=== PATIENT | female | born 1950 | race Caucasian/White ===

== ENCOUNTER 2024-07-07 22:03 | Observation (INO) ==
[2024-07-07] MEDS: SODIUM CHLORIDE 0.9% 1,000 ML IV ONE (22:41)
[2024-07-07] MEDS: ONDANSETRON INJ 2 MG/ML 2 ML VIAL IV STA (22:41)
[2024-07-07] MEDS: ACETAMINOPHEN 1,000 MG/100 ML VIAL IV STA (22:44)
[2024-07-07 23:23] LABS: Alanine Aminotransferase 33 U/L (7-52); Albumin Globulin Ratio 0.7 (0.9-2); Albumin Level 3.3 gm/dl (3.4-5.0); Alkaline Phosphatase 206 U/L (34-104); Anion Gap 9 (3-11); Aspartate Aminotransferase 46 U/L (13-39); BUN Creatinine Ratio 19.6 (10-20); Bilirubin,Total 0.8 mg/dl (0.2-1.0); Blood Urea Nitrogen 11 mg/dl (6-23); Calcium 9.1 mg/dl (8.6-10.3); Carbon Dioxide 20 mmol/L (21-32); Chloride 102 mmol/L (98-107); Globulin 4.5 gm/dl (2.5-4.0); Glucose 85 mg/dl (70-99(Fasting)); Magnesium 1.6 mg/dl (1.7-2.4); Potassium 3.3 mmol/L (3.5-5.1); Sodium 131 mmol/L (136-145); Total Protein 7.8 gm/dl (6.0-8.3)
[2024-07-07 23:24] LABS: Hematocrit (blood only) 30.4 % (37.0-47.0); Hemoglobin 9.9 g/dl (12.0-16.0); Mean Corpuscular Hemoglobin 28.7 pg (25.0-34.0); Mean Corpuscular Hgb Conc 32.6 g/dL (32.0-36.0); Mean Corpuscular Volume 88.1 fL (80.0-100.0); Mean Platelet Volume 10.4 fL (9.4-12.4); Platelet Count 141 K/uL (130-400); RDW Coefficient of Variation 14.5 % (11.5-14.5); RDW Standard Deviation 46.4 fL (36.4-46.3); Red Blood Count 3.45 M/uL (4.20-5.40); White Blood Count 2.67 K/ul (4.8-10.8)
--- NOTE | 2024-07-07 23:24 | Emergency Department Note ---
History of Present Illness General Chief complaint: Back Injury/Pain Stated complaint: COUGH, VOMITING, FEVER, BACK PAIN, HEADACHE Time Seen by Provider: 07/07/24 22:16 History of Present Illness Maximum Pain Intensity: 8 This is a 74-year-old female presenting to the emergency department for evaluation of cough, back pain, and fever. Patient also had 3 episodes of vomiting today. Patient is from [place] and came to [place] 3 days ago. She has past history of breast cancer that is treated and she is cancer free. Patient has not take anything [id number] for her symptoms. She rates her pain an 8/10. Home Medications Medication Instructions Recorded Confirmed Type Lactobacillus acidophilus 20 500 mmu cells PO DAILY 07/08/24 07/08/24 History billion cell capsule (Florajen Acidophilus) anastrozole 1 mg tablet 1 mg PO DAILY 07/08/24 07/08/24 History cyanocobalamin (vitamin B-12) 1,000 mcg PO DAILY 07/08/24 07/08/24 History 1,000 mcg capsule ezetimibe 10 mg tablet 10 mg PO HS 07/08/24 07/08/24 History famotidine 20 mg tablet 20 mg PO DAILY 07/08/24 07/08/24 History fludrocortisone 0.1 mg tablet 0.1 mg PO DAILY 07/08/24 07/08/24 History gabapentin 300 mg capsule 300 mg PO HS 07/08/24 07/08/24 History loperamide 2 mg capsule 2 mg PO Q6H PRN Diarrhea 07/08/24 07/08/24 History midodrine 10 mg tablet 10 mg PO BID 07/08/24 07/08/24 History potassium chloride 20 mEq 20 meq PO BID 07/08/24 07/08/24 History tablet,extended release(part/cryst) pyridostigmine bromide 60 mg tablet 30 mg PO BID 07/08/24 07/08/24 History ursodiol 500 mg tablet 500 mg PO TID 07/08/24 07/08/24 History Allergies Allergy/AdvReac Type Severity Reaction Status Date / Time bempedoic acid Allergy Gastrointestinal Verified 07/07/24 22:32 [From Nexletol] Upset nitrofurantoin Allergy Rash Verified 07/07/24 22:32 prednisone Allergy Vomiting Verified 07/07/24 22:32 tramadol Allergy Vomiting Verified 07/07/24 22:32 Past Med/Surg History Problem List (Updated 07/08/24 @ 22:58 by Vaibhav Myers PA-C) Neutropenic (Acute) Influenza A (Acute) Medical History No chronic diseases present Surgical History No significant past surgical history Social History Smoking Status: Never smoker Second Hand Exposure: No; Do You Dip or Chew Tobacco: No; Hx Alcohol Use: No Hx Substance Use: No Preferred Language: Yoruba Communication Ability: Effective Meat Passer Required: No Beliefs That Will Affect Care: None Current Living Situation: Spouse Other Information That Helps Us Care for You: No Feels Safe at Home: Yes Safety Concerns: Feels Safe At This Time Assistive Devices: Walker Review of Systems A total of 10 systems reviewed and were otherwise negative Physical Exam Vital Signs Vital Signs - 24 hr 07/08/24 00:06 07/08/24 01:51 07/08/24 02:00 Pulse Rate [Apical] 54 L 58 L Pulse Rhythm [Apical] Regular Regular Pulse Strength [Apical] Normal Normal Respiratory Rate 17 16 Respiratory Effort / Characteristics Non-Labored Non-Labored Respiratory Depth Normal Normal Respiratory Pattern Regular Regular Blood Pressure [Right Arm] 142/78 H 148/88 H Blood Pressure Mean [Right Arm] 99 108 Blood Pressure Position [Right Arm] Lying Lying Pulse Oximetry 94 77 L 92 Oxygen Delivery Method Room Air Room Air Nasal Cannula Nasal Cannula Oxygen Flow Rate 2 Oxygen Flow Rate - Titration 2 Pulse Oximetry Post Tiitration 98 VITALS: Vitals are noted on the nurse's note and reviewed by myself. Vital signs stable. GENERAL: Well-developed, well-nourished, white female, who is uncomfortable appearing but nontoxic. HEAD: Normocephalic atraumatic. EARS: External ear normal. External auditory canals clear, tympanic membranes pearly duncan without erythema or effusion bilaterally. EYES: Pupils equal round and reactive to light and accommodation. Conjunctivae without injection, sclerae without icterus. Extraocular movements intact. NOSE: Patent, turbinates without inflammation or discharge. MOUTH: Mucous membranes moist. Tonsils are not enlarged. Pharynx without erythema, blood, or exudate. Uvula midline. Airway patent. NECK: Supple without nuchal rigidity. No lymphadenopathy. No thyromegaly. Cervical spine is nontender. HEART: Regular rate and rhythm without murmurs gallops or rubs. LUNGS: Clear to auscultation bilaterally without wheezes, rales or rhonchi. No retractions or accessory muscle use. ABDOMEN: Positive normal bowel sounds x 4. Soft, nontender, without masses or organomegaly. No guarding or rebound tenderness. Course Administered Medications Anastrozole (Anastrozole 1 Mg Tab) 1 mg PO DAILY [facility] Stop: 08/07/24 08:59 Last Admin: 07/08/24 08:36 Dose: 1 mg Documented By: ROMEO Co-signed By: DULCE MARIA Cyanocobalamin (Cyanocobalamin (B-12) 500 Mcg Tablet) 1,000 mcg PO DAILY [facility] Stop: 08/07/24 08:59 Last Admin: 07/08/24 08:39 Dose: 1,000 mcg Documented By: ROMEO Ezetimibe (Ezetimibe 10 Mg Tab) 10 mg PO [facility] Stop: 08/07/24 20:59 Last Admin: 07/08/24 20:55 Dose: 10 mg Documented By: TOBY Enoxaparin Sodium (Enoxaparin Inj 40 Mg/0.4 Ml Syr) 40 mg SQ Q24H [facility] Stop: 08/07/24 08:59 Last Admin: 07/08/24 08:38 Dose: 40 mg Documented By: ROMEO Famotidine (Famotidine 20 Mg Tab) 20 mg PO DAILY [facility] Stop: 08/07/24 08:59 Last Admin: 07/08/24 08:40 Dose: Not Given Documented By: ROMEO Fludrocortisone Acetate (Fludrocortisone Acetate 0.1 Mg Tab) 0.1 mg PO DAILY [facility] Stop: 08/07/24 08:59 Last Admin: 07/08/24 08:39 Dose: 0.1 mg Documented By: ROMEO Gabapentin (Gabapentin 300 Mg Cap) 300 mg PO [facility] Stop: 08/07/24 20:59 Last Admin: 07/08/24 20:56 Dose: 300 mg Documented By: TOBY Lactobacillus Acidophilus (Advanced Probiotic 625 Mg Capsule) 1,250 mg PO DAILY [facility] Stop: 08/07/24 08:59 Last Admin: 07/08/24 08:38 Dose: 1,250 mg Documented By: ROMEO Midodrine (Midodrine Hcl 10 Mg Tab) 10 mg PO BID@0800,1700 [facility] Stop: 08/07/24 07:59 Last Admin: 07/08/24 16:58 Dose: 10 mg Documented By: Admin: 07/08/24 08:39 Dose: 10 mg Documented By: ROMEO Ursodiol 500 Mg Tab: Non-Formulary Patient's Own Med 1 each PO PM [facility]; Protocol Stop: 08/07/24 20:59 Last Admin: 07/08/24 20:59 Dose: 500 mg Documented By: TOBY Oseltamivir Phosphate (Oseltamivir Phosphate 75 Mg Cap) 75 mg PO BID [facility]; Protocol Stop: 07/13/24 11:59 Last Admin: 07/08/24 20:56 Dose: 75 mg Documented By: radio rigger: 07/08/24 12:35 Dose: 75 mg Documented By: ROMEO Potassium Chloride (Potassium Chloride Crtab 20 Meq Tabcr) 20 meq PO BID [facility] Stop: 08/07/24 08:59 Last Admin: 07/08/24 20:55 Dose: 20 meq Documented By: radio rigger: 07/08/24 10:37 Dose: 20 meq Documented By: ROMEO Pyridostigmine [place] (Pyridostigmine [place] 60 Mg Tab) 30 mg PO BID [facility] Stop: 08/07/24 08:59 Last Admin: 07/08/24 20:58 Dose: 30 mg Documented By: radio rigger: 07/08/24 08:36 Dose: 30 mg Documented By: ROMEO Discontinued Medications Acetaminophen (Ofirmev) 1,000 mg in 100 mls @ 400 mls/hr IV NOW STA Stop: 07/07/24 22:34 Last Admin: 07/07/24 22:44 Dose: Not Given Documented By: HUNTER Sodium Chloride (Nss) 1,000 mls @ 999 mls/hr IV .Q1H1M ONE Stop: 07/07/24 23:20 Last Infusion: 07/07/24 23:49 Dose: Infused Documented By: Admin: 07/07/24 22:41 Dose: 999 mls/hr Documented By: JABARI Magnesium Sulfate/Dextrose (Magnesium Sulfate / D5w) 1 gm in 100 mls @ 50 mls/hr IV Q2H [facility] Stop: 07/08/24 06:59 Last Infusion: 07/08/24 07:10 Dose: Infused Documented By: Admin: 07/08/24 05:10 Dose: 50 mls/hr Documented By: Infusion: 07/08/24 05:10 Dose: Infused Documented By: Admin: 07/08/24 03:34 Dose: 50 mls/hr Documented By: ESTHER Sodium Chloride (Nss) 1,000 mls @ 80 mls/hr IV .[id number] [facility] Stop: 07/08/24 15:56 Last Infusion: 07/08/24 17:15 Dose: Infused Documented By: Admin: 07/08/24 04:33 Dose: 80 mls/hr Documented By: ESTHER Ioversol (Optiray 320 125ml) 116 ml IV ONCE ONE Stop: 07/08/24 00:00 Last Admin: 07/07/24 23:59 Dose: 116 ml Documented By: KAUSHAL Ketorolac Tromethamine (Ketorolac 30 Mg/Ml Vial) 30 mg IV NOW STA Stop: 07/07/24 23:26 Last Admin: 07/07/24 23:39 Dose: 30 mg Documented By: ESTHER Miscellaneous (Ursodiol 500 Mg Tablet - Order Awaiting Action) 1 each N/A QS [facility]; Protocol Stop: 08/07/24 07:59 Last Admin: 07/08/24 10:00 Dose: Not Given Documented By: ROMEO Codyaneous (Patient's Height &/Or Weight Needed) 1 each N/A NOW STA Stop: 07/08/24 03:46 Last Admin: 07/08/24 05:18 Dose: 1 each Documented By: JOSELO Ondansetron HCl (Ondansetron Inj 2 Mg/Ml 2 Ml Vial) 4 mg IV NOW STA Stop: 07/07/24 22:21 Last Admin: 07/07/24 22:41 Dose: 4 mg Documented By: JABARI Oseltamivir Phosphate (Oseltamivir Phosphate 75 Mg Cap) 75 mg PO NOW STA; Protocol Stop: 07/08/24 02:44 Last Admin: 07/08/24 03:34 Dose: 75 mg Documented By: ESTHER Potassium Chloride (Potassium Chloride Crtab 20 Meq Tabcr) 40 meq PO NOW STA Stop: 07/08/24 03:00 Last Admin: 07/08/24 03:33 Dose: 40 meq Documented By: ESTHER Medical Decision Making Differential Diagnosis Differential diagnosis: Etiologies such as viral syndrome, otitis, pharyngitis, pneumonia, influenza, meningitis, urinary tract infection, septic arthritis, soft tissue infectious process, intra-abdominal process, sepsis, bacteremia, as well as others were entertained. Laboratory Data 07/08/24 06:40 07/08/24 06:40 Lab Results 07/07/24 07/07/24 07/07/24 Range/Units 22:39 23:50 Unknown WBC 2.67 L (4.8-10.8) K/ul RBC 3.45 L (4.20-5.40) M/uL Hgb 9.9 L (12.0-16.0) g/dl Hct 30.4 L (37.0-47.0) % MCV 88.1 (80.0-100.0) fL MCH 28.7 (25.0-34.0) pg MCHC 32.6 (32.0-36.0) g/dL RDW Std Deviation 46.4 H (36.4-46.3) fL RDW Coeff of Choco 14.5 (11.5-14.5) % Plt Count 141 (130-400) K/uL MPV 10.4 (9.4-12.4) fL Neutrophils % (Manual) 34 % Lymphocytes % (Manual) 26 % Monocytes % (Manual) 4 % Eosinophils % (Manual) 1 % Basophils % (Manual) 1 % Myelocytes % (Man) 1 % Neutrophils # (Manual) 0.91 L (1.40-6.50) K/uL Total Absolute Neuts 0.91 L* (1.4-6.5) K/uL Lymphocytes # (Manual) 0.69 L (1.2-3.4) K/uL Total Abs Lymphocytes 1.58 (1.2-3.4) K/uL Monocytes # (Manual) 0.11 (0.11-0.59) K/uL Eosinophils # (Manual) 0.03 (0-0.50) K/uL Basophils # (Manual) 0.03 (0-0.2) K/uL Myelocytes # (Manual) 0.03 H (0-0) K/uL Large Granular Lymphs 33 % # Lrg Granular Lymphs 0.88 K/uL Sodium 131 L (136-145) mmol/L Potassium 3.3 L (3.5-5.1) mmol/L Chloride 102 (98-107) mmol/L Carbon Dioxide 20 L (21-32) mmol/L Anion Gap 9 (3-11) BUN 11 (6-23) mg/dl Creatinine 0.56 L (0.6-1.2) mg/dl Est Cr Clr Drug Dosing Not Reportable eGFR 96.91 BUN/Creatinine Ratio 19.6 (10-20) Glucose 85 (70-99(Fasting)) mg/dl Lactate 1.2 (0.4-2.0) mmol/L Calcium 9.1 (8.6-10.3) mg/dl Magnesium 1.6 L (1.7-2.4) mg/dl Total Bilirubin 0.8 (0.2-1.0) mg/dl AST 46 H (13-39) U/L ALT 33 (7-52) U/L Alkaline Phosphatase 206 H (34-104) U/L Troponin I High Sens 7.8 (0-14) pg/ml Total Protein 7.8 (6.0-8.3) gm/dl Albumin 3.3 L (3.4-5.0) gm/dl Globulin 4.5 H (2.5-4.0) gm/dl Albumin/Globulin Ratio 0.7 L (0.9-2) Urine Color Yellow Urine Appearance Clear (Clear) Urine pH 7.0 (4.5-7.5) Ur Specific [place] 1.004 (1.000-1.030) Urine Protein Negative (Negative) Urine Glucose (UA) Negative (Negative) Urine Ketones Negative (Negative) Urine Blood Negative (Negative) Urine Nitrite Negative (Negative) Urine Bilirubin Negative (Negative) Urine Urobilinogen Negative (Negative) Ur Leukocyte Esterase Negative (Negative) Nasal Influ A H1 2008 PCR DETECTED A (NotDetected) Adenovirus (PCR) Not Detected (NotDetected) B. pertussis DNA (PCR) Not Detected (NotDetected) B.parapertussis DNA PCR Not Detected (NotDetected) C. pneumoniae DNA (PCR) Not Detected (NotDetected) Coronavirus OC43 (PCR) Not Detected (NotDetected) Coronavirus HKU1 (PCR) Not Detected (NotDetected) Coronavirus 229E (PCR) Not Detected (NotDetected) SARS-CoV-2 (PCR) Not Detected (NotDetected) Coronavirus NL63 (PCR) Not Detected (NotDetected) Human Metapneumovir PCR Not Detected (NotDetected) Influenza Type B (PCR) Not Detected (NotDetected) M. pneumoniae (PCR) Not Detected (NotDetected) Parainfluenza 1 (PCR) Not Detected (NotDetected) Parainfluenza 2 (PCR) Not Detected (NotDetected) Parainfluenza 3 (PCR) Not Detected (NotDetected) Parainfluenza 4 (PCR) Not Detected (NotDetected) RSV (PCR) Not Detected (NotDetected) Entero/Rhino (PCR) Not Detected (NotDetected) Imaging Data Radiologist's Impression: Chest CTA 07/07/24 22:20 EXAM: CT angio chest PE protocol CLINICAL HISTORY: SOB, flu sx, hx breast ca 116 cc opti 320 TECHNIQUE: Contiguous axial CT angiographic images of the chest were acquired with the administration of 116 cc opti 320 intravenous contrast with PE protocol. One of these 3D techniques was utilized: Maximum Intensity Pixel (MIP), 3D Reconstructed Images, Volume Rendered Images, Surface Shaded Rendering. One of the following dose reduction techniques were utilized for this exam: Automated exposure control, adjustment of the mA and/or kV according to patient size, use of iterative reconstruction?. COMPARISON: None. FINDINGS: No evidence of any filling defect in the main pulmonary trunk, bilateral main pulmonary arteries, segmental arteries and subsegmental arteries to suggest acute or chronic pulmonary embolism. Dilated pulmonary artery and its branches. Dilated thoracic aorta. Cardiomegaly of left atrioventricular preponderance. Bilateral upper lung lobes apical reticulations with right middle lobe calcified nodule, possibly granulomatous. Bilateral pulmonary atelectatic plates and mosaic parenchymal attenuation. No obvious pulmonary masses or consolidations. No pleural or pericardial sac collections. No pathologically enlarged hilar or mediastinal lymph nodes are noted. Hiatus hernia. Scanned osseous structures show spondylosis. No osseous destruction. Scanned upper abdominal cuts show left hepatic lobe cyst. IMPRESSION: 1. No evidence of pulmonary arterial thromboembolism. 2. Cardiomegaly with dilated pulmonary artery suggestive of pulmonary hypertension. 3. Bilateral pulmonary atelectatic plates and mosaic parenchymal attenuation. 4. No obvious pulmonary masses or consolidations. Electronically signed by Alexandrea Goodwin 07-08-2024 01:39 AM MDM Narrative Physical exam and history were performed. Nursing notes, EMR, and Medication List were personally reviewed. No social concerns were identified as barriers to patients care. Patient appears to have fever and flulike symptoms bringing her to the ER. IV access was established and labs were obtained. Bio fire was performed. With her history of cancer and recent travel she was sent to CT scan for angiography. An order was placed for continuous cardiac monitoring. The monitor shows a rate of 62 with normal sinus rhythm. Patient's blood work is as above and was reviewed. She does not have a significantly elevated white blood cell count. She is mildly anemic. Patient has neutropenia on blood work with total absolute neutrophils of 0.91. Transaminases are not diagnostic. Troponin is negative. Bio fire is positive for influenza A. CT scan was reviewed by myself and radiology showing no significant acute process. Case was discussed with my attending. Overall the patient is needs escalation of care. She is neutropenic with influenza. She has cancer history and likely needs additional care before it is safe to discharge her. Case was discussed with the on-call hospitalist team. Please see their dictation for further patient course, plan, disposition. The chart was completed utilizing [employer] Speech Voice Recognition Software. Grammatical errors, random word insertions, pronoun errors, and incomplete sentences are an occasional consequence of this system due to software limitations, ambient noise, and hardware issues. Any formal questions or concerns about the content, text, or information contained within the body of this dictation should be directly addressed to the provider for clarification. Impression & Plan Influenza A, Neutropenic Discharge Plan Visit Data Chief Complaint: Back Injury/Pain Stated Complaint: COUGH, VOMITING, FEVER, BACK PAIN, HEADACHE ED Provider: Nemesio Mora ED Midlevel Provider: Vaibhav Myers Discharge Problem: Influenza A, Neutropenic Patient Disposition: Admitted As Inpatient Discharge Instructions Interventions: ED Discharge Assessment Last Done: 07/08/24 07:41
[2024-07-07 23:30] LABS: Troponin I High Sensitivity 7.8 pg/ml (0-14)
[2024-07-07] MEDS: KETOROLAC 30 MG/ML VIAL IV STA (23:39)
[2024-07-07 23:50] LABS: Adenovirus PCR Not Detected (NotDetected); Bordetella parapertussis PCR Not Detected (NotDetected); Bordetella pertussis PCR Not Detected (NotDetected); Chlamydia pneumoniae PCR Not Detected (NotDetected); Coronavirus 229E PCR Not Detected (NotDetected); Coronavirus CoV-2 (COVID19)PCR Not Detected (NotDetected); Coronavirus HKU1 PCR Not Detected (NotDetected); Coronavirus NL63 PCR Not Detected (NotDetected); Coronavirus OC43PCR Not Detected (NotDetected); Human Metapneumovirus PCR Not Detected (NotDetected); Influenza A (H1 2009) PCR DETECTED (NotDetected); Influenza B PCR Not Detected (NotDetected); Mycoplasma pneumoniae PCR Not Detected (NotDetected); Parainfluenza Virus 1 PCR Not Detected (NotDetected); Parainfluenza Virus 2 PCR Not Detected (NotDetected); Parainfluenza Virus 3 PCR Not Detected (NotDetected); Parainfluenza Virus 4 PCR Not Detected (NotDetected); Respiratory Syncytial VirusPCR Not Detected (NotDetected); Rhinovirus/Enterovirus PCR Not Detected (NotDetected)
[2024-07-07 23:55] LABS: ALC (manual) 1.58 K/uL (1.2-3.4); ANC (manual) 0.91 K/uL (1.4-6.5); Basophils # (manual) 0.03 K/uL (0-0.2); Basophils % (manual) 1 %; Eosinophils # (manual) 0.03 K/uL (0-0.50); Eosinophils % (manual) 1 %; Large Granular Lymph # (manua 0.88 K/uL; Large Granular Lymph % (manual) 33 %; Lymphocytes # (manual) 0.69 K/uL (1.2-3.4); Lymphocytes % (manual) 26 %; Monocytes # (manual) 0.11 K/uL (0.11-0.59); Monocytes % (manual) 4 %; Myelocytes # (manual) 0.03 K/uL (0-0); Myelocytes % (manual) 1 %; Neutrophils # (manual) 0.91 K/uL (1.40-6.50); Neutrophils % (manual) 34 %
[2024-07-07] MEDS: OPTIRAY 320 125ml IV ONE (23:59)
[2024-07-08 00:01] LABS: Appearance Urine Clear (Clear); Bilirubin Urine Negative (Negative); Blood Urine Negative (Negative); Color Urine Yellow; Glucose Urine UA Negative (Negative); Ketones Urine Negative (Negative); Leukocyte Esterase Urine Negative (Negative); Nitrite Urine Negative (Negative); Protein Urine Negative (Negative); Specific Gravity Urine 1.004 (1.000-1.030); Urobilinogen Urine Negative (Negative)
--- NOTE | 2024-07-08 01:40 | CT Scan Report ---
EXAM: CT angio chest PE protocol CLINICAL HISTORY: SOB, flu sx, hx breast ca 116 cc opti 320 TECHNIQUE: Contiguous axial CT angiographic images of the chest were acquired with the administration of 116 cc opti 320 intravenous contrast with PE protocol. One of these 3D techniques was utilized: Maximum Intensity Pixel (MIP), 3D Reconstructed Images, Volume Rendered Images, Surface Shaded Rendering. One of the following dose reduction techniques were utilized for this exam: Automated exposure control, adjustment of the mA and/or kV according to patient size, use of iterative reconstruction?. COMPARISON: None. FINDINGS: No evidence of any filling defect in the main pulmonary trunk, bilateral main pulmonary arteries, segmental arteries and subsegmental arteries to suggest acute or chronic pulmonary embolism. Dilated pulmonary artery and its branches. Dilated thoracic aorta. Cardiomegaly of left atrioventricular preponderance. Bilateral upper lung lobes apical reticulations with right middle lobe calcified nodule, possibly granulomatous. Bilateral pulmonary atelectatic plates and mosaic parenchymal attenuation. No obvious pulmonary masses or consolidations. No pleural or pericardial sac collections. No pathologically enlarged hilar or mediastinal lymph nodes are noted. Hiatus hernia. Scanned osseous structures show spondylosis. No osseous destruction. Scanned upper abdominal cuts show left hepatic lobe cyst. IMPRESSION: 1. No evidence of pulmonary arterial thromboembolism. 2. Cardiomegaly with dilated pulmonary artery suggestive of pulmonary hypertension. 3. Bilateral pulmonary atelectatic plates and mosaic parenchymal attenuation. 4. No obvious pulmonary masses or consolidations. Electronically signed by Alexandrea Goodwin 07-08-2024 01:39 AM
--- NOTE | 2024-07-08 02:49 | History & Physical Report ---
Date of Service July 08, 2024 Assessment & Plan (1) Influenza A: Plan: 74-year-old female from [place] visiting [place] to see her granddaughters's volleyball game with past med history significant for breast cancer diagnosed in 2020 status post left lumpectomy chemo and radiation currently in remission, pancreatic cancer diagnosed in 2022 status post Whipple's procedure and last Tuesday at [facility] had MRIs and CT scans and as per patient no cancer detected, history of primary biliary cholangitis, hypotension, hyperlipidemia, GERD presents with flulike symptoms and nasal swab came positive for influenza A. Patient states she developed symptoms on July 06 evening. She was having whole body aches. Headaches. Feeling weak. Nausea and vomiting. Cough and feeling short of breath. Vision is okay. Appetite is down. Denies any chest pain. Has some abdominal discomfort. Denies any diarrhea or constipation. Micturating okay. Ambulating okay. Requiring oxygen in the ER. Also has neutropenia on labs. Influenza A Hypoxia CTA chest okay Continue oxygen supplementation Start Tamiflu Nebs as needed Will monitor Neutropenia Droplet precautions Follow labs Anemia Possibly from her cancers We do not have baseline We will follow labs Iron studies Stool for Hemoccult History of breast cancer Status post left lumpectomy chemo and radiation On anastrozole Follows with [facility] Pancreatic cancer Status post Whipple's procedure Recently had MRI and CT scans at [facility] and were okay as per patient Hypotension On midodrine and fludrocortisone Hypokalemia and hypomagnesia Replace Will follow labs Hyponatremia Sodium 131 Gentle fluids Will follow repeat labs Hyperlipidemia On Zetia GERD On famotidine Primary biliary cholangitis On ursodiol DVT prophylaxis Lovenox Disposition Med/telemetry Full code. History of Present Illness Chief Complaint: Flu Primary Care Provider: JENNI HANNON 74-year-old female from [place] visiting [place] to see her granddaughters's volleyball game with past med history significant for breast cancer diagnosed in 2020 status post left lumpectomy chemo and radiation currently in remission, pancreatic cancer diagnosed in 2022 status post Whipple's procedure and last Tuesday at [facility] had MRIs and CT scans and as per patient no cancer detected, history of primary biliary cholangitis, hypotension, hyperlipidemia, GERD presents with flulike symptoms and nasal swab came positive for influenza A. Patient states she developed symptoms on July 06 evening. She was having whole body aches. Headaches. Feeling weak. Nausea and vomiting. Cough and feeling short of breath. Vision is okay. Appetite is down. Denies any chest pain. Has some abdominal discomfort. Denies any diarrhea or constipation. Micturating okay. Ambulating okay. Requiring oxygen in the ER. Also has neutropenia on labs. Past medical history. As mentioned above Past surgical history. Left breast lumpectomy. Whipple's procedure. Right knee surgery. Social history. No smoking. No alcohol. No drug use. Family history. Mother had breast cancer. Grandmother had breast cancer. Father had cancer. Two brothers and sister had cancer. Allergies Allergy/AdvReac Type Severity Reaction Status Date / Time bempedoic acid Allergy Gastrointestinal Verified 07/07/24 22:32 [From Nexletol] Upset nitrofurantoin Allergy Rash Verified 07/07/24 22:32 prednisone Allergy Vomiting Verified 07/07/24 22:32 tramadol Allergy Vomiting Verified 07/07/24 22:32 Home Medications Medication Instructions Recorded Confirmed Type Lactobacillus acidophilus 20 500 mmu cells PO DAILY 07/08/24 07/08/24 History billion cell capsule (Florajen Acidophilus) anastrozole 1 mg tablet 1 mg PO DAILY 07/08/24 07/08/24 History cyanocobalamin (vitamin B-12) 1,000 mcg PO DAILY 07/08/24 07/08/24 History 1,000 mcg capsule ezetimibe 10 mg tablet 10 mg PO HS 07/08/24 07/08/24 History famotidine 20 mg tablet 20 mg PO DAILY 07/08/24 07/08/24 History fludrocortisone 0.1 mg tablet 0.1 mg PO DAILY 07/08/24 07/08/24 History gabapentin 300 mg capsule 300 mg PO HS 07/08/24 07/08/24 History loperamide 2 mg capsule 2 mg PO Q6H PRN Diarrhea 07/08/24 07/08/24 History midodrine 10 mg tablet 10 mg PO BID 07/08/24 07/08/24 History potassium chloride 20 mEq 20 meq PO BID 07/08/24 07/08/24 History tablet,extended release(part/cryst) pyridostigmine bromide 60 mg tablet 30 mg PO BID 07/08/24 07/08/24 History ursodiol 500 mg tablet 500 mg PO TID 07/08/24 07/08/24 History Past Med/Surg History Problem List (Updated 07/08/24 @ 02:51 by Murphy Lara MD) Influenza A Medical History No chronic diseases present Surgical History No significant past surgical history Social History Smoking Status: Never smoker Second Hand Exposure: No; Do You Dip or Chew Tobacco: No; Hx Alcohol Use: No Hx Substance Use: No Preferred Language: [place]i Communication Ability: Effective Client Support Analyst Required: No Beliefs That Will Affect Care: None Current Living Situation: Spouse Other Information That Helps Us Care for You: No Feels Safe at Home: Yes Safety Concerns: Feels Safe At This Time Assistive Devices: Walker Review of Systems Review of Systems: All systems reviewed & are unremarkable except as noted in HPI & below Physical Exam Physical Exam: General- Not in distress Head- atraumatic Eyes- PERRL. ENT- oropharynx clear Neck- supple, no JVD. Lungs- clear to auscultation no wheezing or crackles Heart- regular rhythm; no murmur, no gallop. Abdomen- normal bowel sounds, soft, nontender, no distension Extremities- no pretibial edema, no erythema seen Neuro- alert, oriented PERRL, no facial palsy; no dysarthria; moves extremities Results & Data Results & Data Vital Signs (Past 12 Hours) Vital Signs Temp Pulse Pulse Resp BP Pulse Ox O2 Del Method 07/08/24 02:00 58 L 16 148/88 H 92 Nasal Cannula 07/08/24 01:51 77 L Room Air, Nasal Cannula 07/08/24 00:06 54 L 17 142/78 H 94 Room Air 07/07/24 22:55 69 18 151/83 H 97 Room Air 07/07/24 22:52 60 18 151/83 H 07/07/24 22:51 68 07/07/24 22:20 61 18 99 Room Air 07/07/24 22:08 37.1 C O2 Flow Rate 07/08/24 02:00 2 07/08/24 01:51 07/08/24 00:06 07/07/24 22:55 07/07/24 22:52 07/07/24 22:51 07/07/24 22:20 07/07/24 22:08 Diagnostic Findings Laboratory Results WBC 2.67 K/ul (4.8-10.8) L 07/07/24 22:39 RBC 3.45 M/uL (4.20-5.40) L 07/07/24 22:39 Hgb 9.9 g/dl (12.0-16.0) L 07/07/24 22:39 Hct 30.4 % (37.0-47.0) L 07/07/24 22:39 MCV 88.1 fL (80.0-100.0) 07/07/24 22:39 MCH 28.7 pg (25.0-34.0) 07/07/24 22:39 MCHC 32.6 g/dL (32.0-36.0) 07/07/24 22:39 RDW Std Deviation 46.4 fL (36.4-46.3) H 07/07/24 22:39 RDW Coeff of [place] 14.5 % (11.5-14.5) 07/07/24 22:39 Plt Count 141 K/uL (130-400) 07/07/24 22:39 MPV 10.4 fL (9.4-12.4) 07/07/24 22:39 Neutrophils % (Manual) 34 % 07/07/24 22:39 Lymphocytes % (Manual) 26 % 07/07/24 22:39 Monocytes % (Manual) 4 % 07/07/24 22:39 Eosinophils % (Manual) 1 % 07/07/24 22:39 Basophils % (Manual) 1 % 07/07/24 22:39 Myelocytes % (Man) 1 % 07/07/24 22:39 Neutrophils # (Manual) 0.91 K/uL (1.40-6.50) L 07/07/24 22:39 Total Absolute Neuts 0.91 K/uL (1.4-6.5) L* 07/07/24 22:39 Lymphocytes # (Manual) 0.69 K/uL (1.2-3.4) L 07/07/24 22:39 Total Abs Lymphocytes 1.58 K/uL (1.2-3.4) 07/07/24 22:39 Monocytes # (Manual) 0.11 K/uL (0.11-0.59) 07/07/24 22:39 Eosinophils # (Manual) 0.03 K/uL (0-0.50) 07/07/24 22:39 Basophils # (Manual) 0.03 K/uL (0-0.2) 07/07/24 22:39 Myelocytes # (Manual) 0.03 K/uL (0-0) H 07/07/24 22:39 Large Granular Lymphs 33 % 07/07/24 22:39 # Lrg Granular Lymphs 0.88 K/uL 07/07/24 22:39 Sodium 131 mmol/L (136-145) L 07/07/24 22:39 Potassium 3.3 mmol/L (3.5-5.1) L 07/07/24 22:39 Chloride 102 mmol/L (98-107) 07/07/24 22:39 Carbon Dioxide 20 mmol/L (21-32) L 07/07/24 22:39 Anion Gap 9 (3-11) 07/07/24 22:39 BUN 11 mg/dl (6-23) 07/07/24 22:39 Creatinine 0.56 mg/dl (0.6-1.2) L 07/07/24 22:39 Est Cr Clr Drug Dosing Not Reportable 07/07/24 22:39 eGFR 96.91 07/07/24 22:39 BUN/Creatinine Ratio 19.6 (10-20) 07/07/24 22:39 Glucose 85 mg/dl (70-99(Fasting)) 07/07/24 22:39 Lactate 1.2 mmol/L (0.4-2.0) 07/07/24 22:39 Calcium 9.1 mg/dl (8.6-10.3) 07/07/24 22:39 Magnesium 1.6 mg/dl (1.7-2.4) L 07/07/24 22:39 Total Bilirubin 0.8 mg/dl (0.2-1.0) 07/07/24 22:39 AST 46 U/L (13-39) H 07/07/24 22:39 ALT 33 U/L (7-52) 07/07/24 22:39 Alkaline Phosphatase 206 U/L (34-104) H 07/07/24 22:39 Troponin I High Sens 7.8 pg/ml (0-14) 07/07/24 22:39 Total Protein 7.8 gm/dl (6.0-8.3) 07/07/24 22:39 Albumin 3.3 gm/dl (3.4-5.0) L 07/07/24 22:39 Globulin 4.5 gm/dl (2.5-4.0) H 07/07/24 22:39 Albumin/Globulin Ratio 0.7 (0.9-2) L 07/07/24 22:39 Urine Color Yellow 07/07/24 23:50 Urine Appearance Clear (Clear) 07/07/24 23:50 Urine pH 7.0 (4.5-7.5) 07/07/24 23:50 Ur Specific [place] 1.004 (1.000-1.030) 07/07/24 23:50 Urine Protein Negative (Negative) 07/07/24 23:50 Urine Glucose (UA) Negative (Negative) 07/07/24 23:50 Urine Ketones Negative (Negative) 07/07/24 23:50 Urine Blood Negative (Negative) 07/07/24 23:50 Urine Nitrite Negative (Negative) 07/07/24 23:50 Urine Bilirubin Negative (Negative) 07/07/24 23:50 Urine Urobilinogen Negative (Negative) 07/07/24 23:50 Ur Leukocyte Esterase Negative (Negative) 07/07/24 23:50 Nasal Influ A H1 2008 PCR DETECTED (NotDetected) A 07/07/24 Unknown Adenovirus (PCR) Not Detected (NotDetected) 07/07/24 Unknown B. pertussis DNA (PCR) Not Detected (NotDetected) 07/07/24 Unknown B.parapertussis DNA PCR Not Detected (NotDetected) 07/07/24 Unknown C. pneumoniae DNA (PCR) Not Detected (NotDetected) 07/07/24 Unknown Coronavirus OC43 (PCR) Not Detected (NotDetected) 07/07/24 Unknown Coronavirus HKU1 (PCR) Not Detected (NotDetected) 07/07/24 Unknown Coronavirus 229E (PCR) Not Detected (NotDetected) 07/07/24 Unknown SARS-CoV-2 (PCR) Not Detected (NotDetected) 07/07/24 Unknown Coronavirus NL63 (PCR) Not Detected (NotDetected) 07/07/24 Unknown Human Metapneumovir PCR Not Detected (NotDetected) 07/07/24 Unknown Influenza Type B (PCR) Not Detected (NotDetected) 07/07/24 Unknown M. pneumoniae (PCR) Not Detected (NotDetected) 07/07/24 Unknown Parainfluenza 1 (PCR) Not Detected (NotDetected) 07/07/24 Unknown Parainfluenza 2 (PCR) Not Detected (NotDetected) 07/07/24 Unknown Parainfluenza 3 (PCR) Not Detected (NotDetected) 07/07/24 Unknown Parainfluenza 4 (PCR) Not Detected (NotDetected) 07/07/24 Unknown RSV (PCR) Not Detected (NotDetected) 07/07/24 Unknown Entero/Rhino (PCR) Not Detected (NotDetected) 07/07/24 Unknown Impressions Chest CTA 07/07/24 22:20 EXAM: CT angio chest PE protocol CLINICAL HISTORY: SOB, flu sx, hx breast ca 116 cc opti 320 TECHNIQUE: Contiguous axial CT angiographic images of the chest were acquired with the administration of 116 cc opti 320 intravenous contrast with PE protocol. One of these 3D techniques was utilized: Maximum Intensity Pixel (MIP), 3D Reconstructed Images, Volume Rendered Images, Surface Shaded Rendering. One of the following dose reduction techniques were utilized for this exam: Automated exposure control, adjustment of the mA and/or kV according to patient size, use of iterative reconstruction?. COMPARISON: None. FINDINGS: No evidence of any filling defect in the main pulmonary trunk, bilateral main pulmonary arteries, segmental arteries and subsegmental arteries to suggest acute or chronic pulmonary embolism. Dilated pulmonary artery and its branches. Dilated thoracic aorta. Cardiomegaly of left atrioventricular preponderance. Bilateral upper lung lobes apical reticulations with right middle lobe calcified nodule, possibly granulomatous. Bilateral pulmonary atelectatic plates and mosaic parenchymal attenuation. No obvious pulmonary masses or consolidations. No pleural or pericardial sac collections. No pathologically enlarged hilar or mediastinal lymph nodes are noted. Hiatus hernia. Scanned osseous structures show spondylosis. No osseous destruction. Scanned upper abdominal cuts show left hepatic lobe cyst. IMPRESSION: 1. No evidence of pulmonary arterial thromboembolism. 2. Cardiomegaly with dilated pulmonary artery suggestive of pulmonary hypertension. 3. Bilateral pulmonary atelectatic plates and mosaic parenchymal attenuation. 4. No obvious pulmonary masses or consolidations. Electronically signed by Alexandrea Goodwin 07-08-2024 01:39 AM ECG Additional Comments: ECG. Normal sinus rhythm with sinus arrhythmia rate of 69. QTc 495. Code Status & VTE Plan VTE Prophylaxis Plan VTE Prophylaxis will be ordered: Yes
[2024-07-08] MEDS ORDERED: ACETAMINOPHEN 325 MG TAB PO PRN (03:27)
[2024-07-08] MEDS ORDERED: ONDANSETRON INJ 2 MG/ML 2 ML VIAL IV PRN (03:27)
[2024-07-08] MEDS ORDERED: NITROGLYCERIN SL 0.4 MG/TAB TAB SL PRN (03:27)
[2024-07-08] MEDS: POTASSIUM CHLORIDE CRTAB 20 MEQ TABCR PO STA (03:33)
[2024-07-08] MEDS: MAGNESIUM SULFATE / D5W 1 GM/100 ML BAG IV SCH (03:34)
[2024-07-08] MEDS: OSELTAMIVIR PHOSPHATE 75 MG CAP PO STA (03:34)
[2024-07-08] MEDS: SODIUM CHLORIDE 0.9% 1,000 ML IV SCH (04:33)
[2024-07-08] MEDS: Patient's HEIGHT &/or WEIGHT Needed STA (05:18)
[2024-07-08 07:33] LABS: Basophils # (auto) 0.01 K/uL (0.00-0.20); Basophils % (auto) 0.3 %; Eosinophils # (auto) 0.01 K/uL (0.00-0.50); Eosinophils % (auto) 0.3 %; Hematocrit (blood only) 31.4 % (37.0-47.0); Hemoglobin 10.4 g/dl (12.0-16.0); Immature Granulocytes # (auto) 0.01 K/uL (0.01-0.20); Immature Granulocytes % (auto) 0.3 %; Lymphocytes # (auto) 1.47 K/uL (1.20-3.40); Mean Corpuscular Hemoglobin 29.3 pg (25.0-34.0); Mean Corpuscular Hgb Conc 33.1 g/dL (32.0-36.0); Mean Corpuscular Volume 88.5 fL (80.0-100.0); Mean Platelet Volume 10.9 fL (9.4-12.4); Monocytes # (auto) 0.68 K/uL (0.11-0.59); Monocytes % (auto) 20.8 %; Neutrophils # (auto) 1.09 K/uL (1.40-6.50); Neutrophils % (auto) 33.3 %; Platelet Count 132 K/uL (130-400); RDW Coefficient of Variation 14.5 % (11.5-14.5); Red Blood Count 3.55 M/uL (4.20-5.40); White Blood Count 3.27 K/ul (4.8-10.8)
[2024-07-08 07:42] LABS: BUN Creatinine Ratio 20.3 (10-20); Calcium 8.8 mg/dl (8.6-10.3); Creatinine Clr Calc Pharmacy 78.4 ml/min; Magnesium 2.5 mg/dl (1.7-2.4); Potassium 3.7 mmol/L (3.5-5.1)
--- NOTE | 2024-07-08 08:24 | Electrocardiogram Report ---
Test Reason : Blood Pressure : */* mmHG Vent. Rate : 69 BPM Atrial Rate : 69 BPM P-R Int : 122 ms QRS Dur : 84 ms QT Int : 462 ms P-R-T Axes : 58 -2 46 degrees QTcB Int : 495 ms Normal sinus rhythm Prolonged QT Abnormal ECG No previous ECGs available Confirmed by Louie Longo ([id number]) on 07/08/2024 8:23:34 AM Referred By: Confirmed By: Louie Longo
[2024-07-08] MEDS: ANASTROZOLE 1 MG TAB PO SCH (08:36)
[2024-07-08] MEDS: pyRIDostigmine bromide 60 MG TAB PO SCH (08:36)
[2024-07-08] MEDS: ENOXAPARIN INJ 40 MG/0.4 ML SYR SQ SCH (08:38)
[2024-07-08] MEDS: ADVANCED PROBIOTIC 625 MG CAPSULE PO SCH (08:38)
[2024-07-08] MEDS: FLUDROCORTISONE ACETATE 0.1 MG TAB PO SCH (08:39)
[2024-07-08] MEDS: MIDODRINE HCL 10 MG TAB PO SCH (08:39)
[2024-07-08] MEDS: CYANOCOBALAMIN (B-12) 500 MCG TABLET PO SCH (08:39)
[2024-07-08] MEDS: FAMOTIDINE 20 MG TAB PO SCH (08:40)
[2024-07-08 09:40] LABS: Folate (Folic Acid),Ser orPlas 20.48 ng/ml (>5.38)
[2024-07-08] MEDS: POTASSIUM CHLORIDE CRTAB 20 MEQ TABCR PO SCH (10:37)
--- NOTE | 2024-07-08 12:01 | Hospitalist Progress Note ---
Date of Service July 08, 2024 Assessment & Plan (1) Influenza A: Plan: 74-year-old female from [place] visiting [place] to see her granddaughters's volleyball game with past med history significant for breast cancer diagnosed in 2020 status post left lumpectomy chemo and radiation currently in remission, pancreatic cancer diagnosed in 2022 status post Whipple's procedure and last Tuesday at [facility] had MRIs and CT scans and as per patient no cancer detected, history of primary biliary cholangitis, hypotension, hyperlipidemia, GERD presents with flulike symptoms and nasal swab came positive for influenza A. Patient states she developed symptoms on July 06 evening. She was having whole body aches. Headaches. Feeling weak. Nausea and vomiting. Cough and feeling short of breath. Vision is okay. Appetite is down. Denies any chest pain. Has some abdominal discomfort. Denies any diarrhea or constipation. Micturating okay. Ambulating okay. Requiring oxygen in the ER. Also has neutropenia on labs. Influenza A Hypoxia CTA chest okay Has been on TamifluTamiflu Nebs as needed Clinically much better without any cough, shortness of breath Generalized weakness is improving Neutropenia Droplet precautions Mild neutropenia was likely secondary to influenza and this is much improved today Will monitor blood count tomorrow and likely discharge tomorrow afternoon Anemia Possibly from her cancers We do not have baseline We will follow labs Iron studies Stool for Hemoccult- not collected History of breast cancer Status post left lumpectomy chemo and radiation On anastrozole Follows with [facility] Pancreatic cancer Status post Whipple's procedure Recently had MRI and CT scans at [facility] and were okay as per patient Denies any abdominal pain, nausea and or vomiting Hypotension On midodrine and fludrocortisone Hypokalemia and hypomagnesia Replace Will follow labs Hyponatremia Sodium 131 Gentle fluids Will follow repeat labs- hyponatremia is corrected Hyperlipidemia On Zetia GERD On famotidine Primary biliary cholangitis On ursodiol DVT prophylaxis Lovenox Disposition Med/telemetry Full code. Admission and Anticipated Discharge Date Admission Date: July 08, 2024 Subjective 07/08/2024 The patient was seen and examined in medical telemetry unit She has been feeling little better but still remains weak Denies any shortness of breath or cough and does not have any abdominal pain, nausea and or vomiting and no diarrhea Review of Systems Review of Systems: All systems reviewed and are unremarkable except as noted below Physical Exam Physical Exam: Sitting at the edge of the bed without any acute distress Constitutional: + ill appearing and average body habitus Eyes: PERRL, conjunctivae normal, anicteric sclerae ENMT: external ear and nose normal, oropharynx normal Neck: trachea midline, no thyromegaly Respiratory: no respiratory distress Auscultation: + diminished lung sounds; no crackles and no wheezes Cardiovascular: Rate/Rhythm: regular rate and regular rhythm; not tachycardic Heart Sounds: normal S1 and normal S2; no murmur Extremities: no edema Gastrointestinal (Abdomen): Inspection/Auscultation: normal bowel sounds; abdomen not distended Percussion/Palpation: abdomen soft; abdomen nontender Musculoskeletal: No acute arthritis involving any of the joint Neurologic: normal touch/pain/proprioception and moves all extremities; no focal motor deficits Lymphatic: no cervical or axillary lymphadenopathy Results & Data Results & Data Vital Signs (Past 12 Hours) Vital Signs Temp Pulse Pulse Resp BP BP Pulse Ox 07/08/24 09:24 69 07/08/24 09:24 07/08/24 08:00 36.9 C 71 16 150/91 H 98 07/08/24 07:41 07/08/24 07:29 60 07/08/24 07:00 137/87 07/08/24 06:48 56 L 14 96 07/08/24 04:31 36.8 C 62 17 140/88 07/08/24 04:00 53 L 17 146/89 H 98 07/08/24 03:28 57 L 17 152/92 H 98 07/08/24 03:27 07/08/24 02:44 56 L 07/08/24 02:00 58 L 16 148/88 H 92 07/08/24 01:51 77 L 07/08/24 00:06 54 L 17 142/78 H 94 Pulse Ox O2 Del Method O2 Del Method O2 Flow Rate 07/08/24 09:24 07/08/24 09:24 Room Air 07/08/24 08:00 Room Air 07/08/24 07:41 Room Air 07/08/24 07:29 07/08/24 07:00 07/08/24 06:48 Room Air 07/08/24 04:31 07/08/24 04:00 Room Air 07/08/24 03:28 Nasal Cannula 2 07/08/24 03:27 92 Room Air 07/08/24 02:44 07/08/24 02:00 Nasal Cannula 2 07/08/24 01:51 Room Air, Nasal Cannula 07/08/24 00:06 Room Air Laboratory Results Short CBC 07/07/24 07/08/24 Range/Units 22:39 06:40 WBC 2.67 L 3.27 L (4.8-10.8) K/ul Hgb 9.9 L 10.4 L (12.0-16.0) g/dl Hct 30.4 L 31.4 L (37.0-47.0) % Plt Count 141 132 (130-400) K/uL BMP 07/07/24 07/08/24 22:39 06:40 Sodium 131 L 136 Potassium 3.3 L 3.7 Chloride 102 107 Carbon Dioxide 20 L 23 BUN 11 12 Creatinine 0.56 L 0.59 L Glucose 85 89 Calcium 9.1 8.8 Liver Function 07/07/24 Range/Units 22:39 Total Bilirubin 0.8 (0.2-1.0) mg/dl AST 46 H (13-39) U/L ALT 33 (7-52) U/L Alkaline Phosphatase 206 H (34-104) U/L Albumin 3.3 L (3.4-5.0) gm/dl Urine 07/07/24 Range/Units 23:50 Urine Color Yellow Urine Appearance Clear (Clear) Urine pH 7.0 (4.5-7.5) Ur Specific [place] 1.004 (1.000-1.030) Urine Protein Negative (Negative) Urine Glucose (UA) Negative (Negative) Medications Administered Current Inpatient Medications Acetaminophen (Acetaminophen 325 Mg Tab) 650 mg PO Q4H PRN PRN Reason: Pain or Fever Stop: 08/07/24 03:26 Anastrozole (Anastrozole 1 Mg Tab) 1 mg PO DAILY [facility] Stop: 08/07/24 08:59 Last Admin: 07/08/24 08:36 Dose: 1 mg Cyanocobalamin (Cyanocobalamin (B-12) 500 Mcg Tablet) 1,000 mcg PO DAILY [facility] Stop: 08/07/24 08:59 Last Admin: 07/08/24 08:39 Dose: 1,000 mcg Ezetimibe (Ezetimibe 10 Mg Tab) 10 mg PO HS [facility] Stop: 08/07/24 20:59 Enoxaparin Sodium (Enoxaparin Inj 40 Mg/0.4 Ml Syr) 40 mg SQ Q24H [facility] Stop: 08/07/24 08:59 Last Admin: 07/08/24 08:38 Dose: 40 mg Famotidine (Famotidine 20 Mg Tab) 20 mg PO DAILY [facility] Stop: 08/07/24 08:59 Last Admin: 07/08/24 08:40 Dose: Not Given Fludrocortisone Acetate (Fludrocortisone Acetate 0.1 Mg Tab) 0.1 mg PO DAILY [facility] Stop: 08/07/24 08:59 Last Admin: 07/08/24 08:39 Dose: 0.1 mg Gabapentin (Gabapentin 300 Mg Cap) 300 mg PO HS [facility] Stop: 08/07/24 20:59 Sodium Chloride (Nss) 1,000 mls @ 80 mls/hr IV .[id number] [facility] Stop: 07/08/24 15:56 Last Admin: 07/08/24 04:33 Dose: 80 mls/hr Lactobacillus Acidophilus (Advanced Probiotic 625 Mg Capsule) 1,250 mg PO DAILY [facility] Stop: 08/07/24 08:59 Last Admin: 07/08/24 08:38 Dose: 1,250 mg Midodrine (Midodrine Hcl 10 Mg Tab) 10 mg PO BID@0800,1700 [facility] Stop: 08/07/24 07:59 Last Admin: 07/08/24 08:39 Dose: 10 mg Miscellaneous (Ursodiol 500 Mg Tablet - Order Awaiting Action) 1 each N/A QS [facility] Stop: 08/07/24 07:59 Last Admin: 07/08/24 10:00 Dose: Not Given Nitroglycerin (Nitroglycerin Sl 0.4 Mg/Tab Tab) 0.4 mg SL Q5M PRN PRN Reason: Chest Pain Stop: 08/07/24 03:26 Ondansetron HCl (Ondansetron Inj 2 Mg/Ml 2 Ml Vial) 4 mg IV Q6H PRN PRN Reason: Nausea Stop: 08/07/24 03:26 Oseltamivir Phosphate (Oseltamivir Phosphate 75 Mg Cap) 75 mg PO BID [facility]; Protocol Stop: 07/13/24 11:59 Potassium Chloride (Potassium Chloride Crtab 20 Meq Tabcr) 20 meq PO BID [facility] Stop: 08/07/24 08:59 Last Admin: 07/08/24 10:37 Dose: 20 meq Pyridostigmine [place] (Pyridostigmine [place] 60 Mg Tab) 30 mg PO BID [facility] Stop: 08/07/24 08:59 Last Admin: 07/08/24 08:36 Dose: 30 mg
[2024-07-08] MEDS: OSELTAMIVIR PHOSPHATE 75 MG CAP PO SCH (12:35)
[2024-07-08 15:37] VITALS: RESP 18
[2024-07-08] MEDS: EZETIMIBE 10 MG TAB PO SCH (20:55)
[2024-07-08] MEDS: GABAPENTIN 300 MG CAP PO SCH (20:56)
[2024-07-08] MEDS: URSODIOL 500 MG PO SCH (20:59)
[2024-07-09 07:52] VITALS: BP 104/69; TEMP 98.1; O2SAT 97
[2024-07-09 07:57] LABS: BUN Creatinine Ratio 16.7 (10-20); Creatinine Clr Calc Pharmacy 67.8 ml/min; Magnesium 1.9 mg/dl (1.7-2.4); Potassium 4.1 mmol/L (3.5-5.1)
[2024-07-09] MEDS: URSODIOL 500 MG PO SCH (08:01)
[2024-07-09 08:06] LABS: Hemoglobin 11.1 g/dl (12.0-16.0); Mean Corpuscular Hemoglobin 29.4 pg (25.0-34.0); Mean Corpuscular Hgb Conc 32.6 g/dL (32.0-36.0); Mean Corpuscular Volume 89.9 fL (80.0-100.0); Platelet Count 142 K/uL (130-400); RDW Coefficient of Variation 14.8 % (11.5-14.5); RDW Standard Deviation 49.1 fL (36.4-46.3); Red Blood Count 3.78 M/uL (4.20-5.40); White Blood Count 3.06 K/ul (4.8-10.8)
[2024-07-09 08:58] LABS: ALC (manual) 1.81 K/uL (1.2-3.4); ANC (manual) 0.95 K/uL (1.4-6.5); Basophils # (manual) 0.03 K/uL (0-0.2); Basophils % (manual) 1 %; Large Granular Lymph # (manua 0.95 K/uL; Large Granular Lymph % (manual) 31 %; Lymphocytes # (manual) 0.86 K/uL (1.2-3.4); Lymphocytes % (manual) 28 %; Monocytes # (manual) 0.28 K/uL (0.11-0.59); Monocytes % (manual) 9 %; Neutrophils # (manual) 0.95 K/uL (1.40-6.50); Neutrophils % (manual) 31 %
--- NOTE | 2024-07-09 10:39 | Hospitalist Progress Note ---
Date of Service July 09, 2024 Assessment & Plan (1) Influenza A: Plan: 74-year-old female from [place] visiting [place] to see her granddaughters's volleyball game with past med history significant for breast cancer diagnosed in 2020 status post left lumpectomy chemo and radiation currently in remission, pancreatic cancer diagnosed in 2022 status post Whipple's procedure and last Tuesday at [facility] had MRIs and CT scans and as per patient no cancer detected, history of primary biliary cholangitis, hypotension, hyperlipidemia, GERD presents with flulike symptoms and nasal swab came positive for influenza A. Patient states she developed symptoms on July 06 evening. She was having whole body aches. Headaches. Feeling weak. Nausea and vomiting. Cough and feeling short of breath. Vision is okay. Appetite is down. Denies any chest pain. Has some abdominal discomfort. Denies any diarrhea or constipation. Micturating okay. Ambulating okay. Requiring oxygen in the ER. Also has neutropenia on labs. Influenza A Hypoxia CTA chest okay Has been on TamifluTamiflu Nebs as needed Clinically much better without any cough, shortness of breath Generalized weakness is improving No more symptoms of cough, shortness of breath, sneezing She will be discharged home this afternoon Neutropenia Droplet precautions Mild neutropenia was likely secondary to influenza and this is much improved today Will monitor blood count tomorrow and likely discharge tomorrow afternoon Her neutropenia is stable and better with cytopenia Anemia Possibly from her cancers We do not have baseline We will follow labs Iron studies Stool for Hemoccult-negative History of breast cancer Status post left lumpectomy chemo and radiation On anastrozole Follows with [facility] Pancreatic cancer Status post Whipple's procedure Recently had MRI and CT scans at [facility] and were okay as per patient Denies any abdominal pain, nausea and or vomiting Hypotension On midodrine and fludrocortisone Hypokalemia and hypomagnesia Replace Will follow labs Hyponatremia Sodium 131 Gentle fluids Will follow repeat labs- hyponatremia is corrected Hyperlipidemia On Zetia GERD On famotidine Primary biliary cholangitis On ursodiol DVT prophylaxis Lovenox Disposition Med/telemetry Full code. She will be discharged home this afternoon Admission and Anticipated Discharge Date Admission Date: July 08, 2024 Subjective 07/08/2024 The patient was seen and examined in medical telemetry unit She has been feeling little better but still remains weak Denies any shortness of breath or cough and does not have any abdominal pain, nausea and or vomiting and no diarrhea 07/09/2024 The patient was seen and examined in medical telemetry unit She has been feeling much better with less weakness and has been ambulating without difficulties Her flu symptoms have resolved She will be discharged this afternoon Review of Systems Review of Systems: All systems reviewed and are unremarkable except as noted below Physical Exam Physical Exam: Sitting at the edge of the bed without any acute distress Constitutional: + ill appearing and average body habitus Eyes: PERRL, conjunctivae normal, anicteric sclerae ENMT: external ear and nose normal, oropharynx normal Neck: trachea midline, no thyromegaly Respiratory: no respiratory distress Auscultation: + diminished lung sounds; no crackles and no wheezes Cardiovascular: Rate/Rhythm: regular rate and regular rhythm; not tachycardic Heart Sounds: normal S1 and normal S2; no murmur Extremities: no edema Gastrointestinal (Abdomen): Inspection/Auscultation: normal bowel sounds; abdomen not distended Percussion/Palpation: abdomen soft; abdomen nontender Neurologic: normal touch/pain/proprioception and moves all extremities; no focal motor deficits Lymphatic: no cervical or axillary lymphadenopathy Results & Data Results & Data Vital Signs (Past 12 Hours) Vital Signs Temp Pulse Pulse Pulse Resp BP Pulse Ox 07/09/24 09:26 07/09/24 07:53 68 07/09/24 07:51 36.7 C 72 18 104/69 97 07/09/24 04:00 36.6 C 71 18 121/78 98 07/08/24 23:45 36.8 C 66 18 122/68 95 O2 Del Method 07/09/24 09:26 Room Air 07/09/24 07:53 07/09/24 07:51 Room Air 07/09/24 04:00 Room Air 07/08/24 23:45 Room Air Laboratory Results Short CBC 07/09/24 Range/Units 07:16 WBC 3.06 L (4.8-10.8) K/ul Hgb 11.1 L (12.0-16.0) g/dl Hct 34.0 L (37.0-47.0) % Plt Count 142 (130-400) K/uL BMP 07/09/24 07:16 Sodium 138 Potassium 4.1 Chloride 108 H Carbon Dioxide 24 BUN 11 Creatinine 0.66 Glucose 82 Calcium 9.0 Medications Administered Current Inpatient Medications Acetaminophen (Acetaminophen 325 Mg Tab) 650 mg PO Q4H PRN PRN Reason: Pain or Fever Stop: 08/07/24 03:26 Anastrozole (Anastrozole 1 Mg Tab) 1 mg PO DAILY [facility] Stop: 08/07/24 08:59 Last Admin: 07/09/24 08:03 Dose: 1 mg Cyanocobalamin (Cyanocobalamin (B-12) 500 Mcg Tablet) 1,000 mcg PO DAILY [facility] Stop: 08/07/24 08:59 Last Admin: 07/09/24 08:00 Dose: 1,000 mcg Ezetimibe (Ezetimibe 10 Mg Tab) 10 mg PO HS [facility] Stop: 08/07/24 20:59 Last Admin: 07/08/24 20:55 Dose: 10 mg Enoxaparin Sodium (Enoxaparin Inj 40 Mg/0.4 Ml Syr) 40 mg SQ Q24H [facility] Stop: 08/07/24 08:59 Last Admin: 07/09/24 08:04 Dose: Not Given Famotidine (Famotidine 20 Mg Tab) 20 mg PO DAILY [facility] Stop: 08/07/24 08:59 Last Admin: 07/09/24 08:04 Dose: Not Given Fludrocortisone Acetate (Fludrocortisone Acetate 0.1 Mg Tab) 0.1 mg PO DAILY [facility] Stop: 08/07/24 08:59 Last Admin: 07/09/24 08:00 Dose: 0.1 mg Gabapentin (Gabapentin 300 Mg Cap) 300 mg PO HS [facility] Stop: 08/07/24 20:59 Last Admin: 07/08/24 20:56 Dose: 300 mg Lactobacillus Acidophilus (Advanced Probiotic 625 Mg Capsule) 1,250 mg PO DAILY [facility] Stop: 08/07/24 08:59 Last Admin: 07/09/24 08:03 Dose: 1,250 mg Midodrine (Midodrine Hcl 10 Mg Tab) 10 mg PO BID@0800,1700 [facility] Stop: 08/07/24 07:59 Last Admin: 07/09/24 08:03 Dose: 10 mg Nitroglycerin (Nitroglycerin Sl 0.4 Mg/Tab Tab) 0.4 mg SL Q5M PRN PRN Reason: Chest Pain Stop: 08/07/24 03:26 Ursodiol 500 Mg Tab: Non-Formulary Patient's Own Med 2 each PO QAM [facility]; Protocol Stop: 08/08/24 08:59 Last Admin: 07/09/24 08:01 Dose: 2 each Ursodiol 500 Mg Tab: Non-Formulary Patient's Own Med 1 each PO PM [facility]; Protocol Stop: 08/07/24 20:59 Last Admin: 07/08/24 20:59 Dose: 500 mg Ondansetron HCl (Ondansetron Inj 2 Mg/Ml 2 Ml Vial) 4 mg IV Q6H PRN PRN Reason: Nausea Stop: 08/07/24 03:26 Oseltamivir Phosphate (Oseltamivir Phosphate 75 Mg Cap) 75 mg PO BID [facility]; Protocol Stop: 07/13/24 11:59 Last Admin: 07/09/24 08:01 Dose: 75 mg Potassium Chloride (Potassium Chloride Crtab 20 Meq Tabcr) 20 meq PO BID [facility] Stop: 08/07/24 08:59 Last Admin: 07/09/24 08:05 Dose: 20 meq Pyridostigmine [place] (Pyridostigmine [place] 60 Mg Tab) 30 mg PO BID [facility] Stop: 08/07/24 08:59 Last Admin: 07/09/24 08:02 Dose: 30 mg
[2024-07-09 11:34] VITALS: PULSE 71
[2024-07-09] MEDS: HEPARIN 100 UNIT/ML 5ML FLUSH FLUSH PRN (12:12)
--- NOTE | 2024-07-09 15:39 | Communication Note ---
Date of Service: July 09, 2024 By CMS guidelines, a determination that the admission or continued stay is not medically necessary has been made by a member of the UR committee and a ph ysician for this hospital stay, therefore a Code 44 will be completed and the Inpatient admission will be changed to outpatient.
--- NOTE | 2024-07-10 08:27 | Discharge Summary ---
Date of Service July 10, 2024 Admission HPI Per Admitting Provider 74-year-old female from [place] visiting [place] to see her granddaughters's volleyball game with past med history significant for breast cancer diagnosed in 2020 status post left lumpectomy chemo and radiation currently in remission, pancreatic cancer diagnosed in 2022 status post Whipple's procedure and last Tuesday at [facility] had MRIs and CT scans and as per patient no cancer detected, history of primary biliary cholangitis, hypotension, hyperlipidemia, GERD presents with flulike symptoms and nasal swab came positive for influenza A. Patient states she developed symptoms on July 06 evening. She was having whole body aches. Headaches. Feeling weak. Nausea and vomiting. Cough and feeling short of breath. Vision is okay. Appetite is down. Denies any chest pain. Has some abdominal discomfort. Denies any diarrhea or constipation. Micturating okay. Ambulating okay. Requiring oxygen in the ER. Also has neutropenia on labs. Past medical history. As mentioned above Past surgical history. Left breast lumpectomy. Whipple's procedure. Right knee surgery. Social history. No smoking. No alcohol. No drug use. Family history. Mother had breast cancer. Grandmother had breast cancer. Father had cancer. Two brothers and sister had cancer. Admission Exam Per Admitting Provider Physical Exam: General- Not in distress Head- atraumatic Eyes- PERRL. ENT- oropharynx clear Neck- supple, no JVD. Lungs- clear to auscultation no wheezing or crackles Heart- regular rhythm; no murmur, no gallop. Abdomen- normal bowel sounds, soft, nontender, no distension Extremities- no pretibial edema, no erythema seen Neuro- alert, oriented PERRL, no facial palsy; no dysarthria; moves extremities Principal Diagnosis Influenza A, neutropenia likely secondary to viral illness Discharge Exam Sitting at the edge of the bed without any acute distress Constitutional + ill appearing and average body habitus Eyes PERRL, conjunctivae normal, anicteric sclerae ENMT external ear and nose normal, oropharynx normal Neck trachea midline, no thyromegaly Respiratory no respiratory distress Auscultation: + diminished lung sounds; no crackles and no wheezes Cardiovascular Rate/Rhythm: regular rate and regular rhythm; not tachycardic Heart Sounds: normal S1 and normal S2; no murmur Extremities: no edema Gastrointestinal (Abdomen) Inspection/Auscultation: normal bowel sounds; abdomen not distended Percussion/Palpation: abdomen soft; abdomen nontender Neurologic normal touch/pain/proprioception and moves all extremities; no focal motor deficits Lymphatic no cervical or axillary lymphadenopathy Discharge Data Allergies Allergy/AdvReac Type Severity Reaction Status Date / Time bempedoic acid Allergy Gastrointestinal Verified 07/07/24 22:32 [From Nexletol] Upset nitrofurantoin Allergy Rash Verified 07/07/24 22:32 prednisone Allergy Vomiting Verified 07/07/24 22:32 tramadol Allergy Vomiting Verified 07/07/24 22:32 Consultations 07/08/24 01:09 ED Decision to Admit Stat Ordered Studies 07/07/24 22:20 CT angio chest PE protocol Stat Hospital Course (1) Influenza A: 74-year-old female from [place] visiting [place] to see her granddaughters's volleyball game with past med history significant for breast cancer diagnosed in 2020 status post left lumpectomy chemo and radiation currently in remission, pancreatic cancer diagnosed in 2022 status post Whipple's procedure and last Tuesday at [facility] had MRIs and CT scans and as per patient no cancer detected, history of primary biliary cholangitis, hy potension, hyperlipidemia, GERD presents with flulike symptoms and nasal swab came positive for influenza A. Patient states she developed symptoms on July 06 evening. She was having whole body aches. Headaches. Feeling weak. Nausea and vomiting. Cough and feeling short of breath. Vision is okay. Appetite is down. Denies any chest pain. Has some abdominal discomfort. Denies any diarrhea or constipation. Micturating okay. Ambulating okay. Requiring oxygen in the ER. Also has neutropenia on labs. Influenza A Hypoxia CTA chest okay Has been on TamifluTamiflu Nebs as needed Clinically much better without any cough, shortness of breath Generalized weakness is improving No more symptoms of cough, shortness of breath, sneezing She will be discharged home this afternoon Neutropenia Droplet precautions Mild neutropenia was likely secondary to influenza and this is much improved today Will monitor blood count tomorrow and likely discharge tomorrow afternoon Her neutropenia is stable and better with cytopenia Anemia Possibly from her cancers We do not have baseline We will follow labs Iron studies Stool for Hemoccult-negative History of breast cancer Status post left lumpectomy chemo and radiation On anastrozole Follows with [facility] Pancreatic cancer Status post Whipple's procedure Recently had MRI and CT scans at [facility] and were okay as per patient Denies any abdominal pain, nausea and or vomiting Hypotension On midodrine and fludrocortisone Hypokalemia and hypomagnesia Replace Will follow labs Hyponatremia Sodium 131 Gentle fluids Will follow repeat labs- hyponatremia is corrected Hyperlipidemia On Zetia GERD On famotidine Primary biliary cholangitis On ursodiol DVT prophylaxis Lovenox Disposition Med/telemetry Full code. She will be discharged home this afternoon Total Time Total Time Spent Total Time Spent (In Minutes): 35 Minutes Discharge Plan Discharge Items Patient Disposition: Home - Self-Care Reason For Visit: FLU, NEUTROPENIA Discharge Diagnosis: Influenza A, neutropenia likely secondary to viral illness Condition on Discharge: Good Activity: Resume your previous activity Non-emergency contact: Primary Care Provider Call non-emergency contact if: you have any medication questions and your symptoms worsen Follow-up/Referrals: Haider Dillard MD [Primary Care Provider] - Diet: Regular Addtl Attending Provider Instructions: Please take precaution to avoid falls Try to use mask as long as you are coughing and not sneezing Finish the course of Tamiflu Please make an appointment with your primary care physician within 7 days Pending Studies at Discharge: No Stand-Alone Forms: My [facility] [employer], Work/School Release, Smoking Cessation Medications and DC Order Prescriptions: New oseltamivir [Tamiflu] 75 mg Capsule 75 mg PO BID Qty: 8 0RF Continued anastrozole 1 mg tablet 1 mg PO DAILY loperamide 2 mg Capsule 2 mg PO Q6H PRN (Reason: Diarrhea) potassium chloride 20 mEq tablet,ER particles/crystals 20 meq PO BID famotidine 20 mg tablet 20 mg PO DAILY pyridostigmine bromide 60 mg tablet 30 mg PO BID gabapentin 300 mg capsule 300 mg PO HS fludrocortisone 0.1 mg tablet 0.1 mg PO DAILY midodrine 10 mg tablet 10 mg PO BID ezetimibe 10 mg tablet 10 mg PO HS ursodiol 500 mg tablet 500 mg PO TID Rx Instructions: TAKE 2 TABLETS IN THE AM AND 1 TAB IN THE PM [place] Acidophilus 20 billion cell Capsule 500 mmu cells PO DAILY cyanocobalamin (vitamin B-12) 1,000 mcg Capsule 1,000 mcg PO DAILY Discharge Orders: Discharge Order (Routine); Ordered 07/09/24 Ordered By: Garett Loving Admission Data Admit Date/Time: 07/08/24 02:43 Attending Provider: Garett Loving Admit Provider: Murphy Lara Primary Care Provider: Haider Dillard Other Providers: Murphy Lara Other Interventions: Discharge Summary Assessment (RN) Last Done: 07/09/24 11:33
== END 2024-07-09 13:42 | disposition home or self-care (01) | DRG 194 ==
LOC: ED 22:03 → EDINP 07-08 02:43 → INTOOBSV 07-08 02:43 → 2N 07-08 07:41